=== PATIENT | male | born 1970 | race Caucasian/White ===

== ENCOUNTER 2024-12-28 08:19 | Outpatient (CLI) | payer MEDICARE, MEDICAID, SELFPAY ==
--- NOTE | ~2024-12-28 | CT_ITS ---
CT Scan of the Chest without Contrast: Clinical Indication: Lung cancer screening, nicotine dependence Technique: Contiguous sections were acquired throughout the chest without intravenous contrast. Dose reduction technique was used on this scan by utilizing automated exposure control and iterative recon struction technique. The dose-length product (DLP) was 61.79 mGy-cm. Findings: There is no evidence of any significant mediastinal, hilar or axillary lymphadenopathy. The mediastin al soft tissues appear normal. There is no evidence of pleural or pericardial effusion. 3 mm right upper lobe pulmonary nodule present (axial image 36). There is moderate to severe emphysem a. 4 mm nodule present superior segment right lower lobe posteriorly (axial image 61). 3 mm right mid dle lobe nodule present (axial image 80). 3 mm lingular nodule present (axial image 91). 6 mm pleural -based nodule present in the right lower lobe (axial image 101). Additional 7 mm right lower lobe nod ule present anteriorly (axial image 113). Images through the upper abdomen reveal no abnormalities. Chronic T12 compression fracture present. Impression: Lung RADS 3: Probably benign. Six-month follow-up CT scan recommended. Moderate to advanced emphysema. Reviewed, dictated and finalized at location M. Impression: Lung RADS 3: Probably benign. Six-month follow-up CT scan recommended. Moderate to advanced emphysema.
== END 2024-12-28 08:20 | disposition home or self-care (01) ==
LOC: MICIMG 08:21
PROVIDERS: PCP Family Medicine; Visit Provider Family Medicine
DX: Z12.2 Encounter for screening for malignant neoplasm of respiratory organs (principal); Z87.891 Personal history of nicotine dependence; R91.8 Other nonspecific abnormal finding of lung field
CPT/HCPCS: 71271